=== PATIENT | female | born 1990 | race Two or more races ===

== ENCOUNTER 2024-12-16 15:23 | Observation (INO) | payer OTHER, MEDICAID, SELFPAY ==
[2024-12-16] VITALS (16 sets, daily range): BP systolic 121–141; BP diastolic 68–84; PULSE 93–142; RESP 18–97; TEMP 36.7; O2SAT 95–98; BMI 37.4
[2024-12-16 16:19] LABS: Creatinine,Random Urine 113 mg/dL (30-125); Protein Total, Random Urine 32 mg/dL (1-14)
[2024-12-16 16:26] LABS: Basophils % (Auto) 0 % (0-2.5); Eosinophils % (Auto) 0 % (0-10); Hematocrit 31.9 % (36.0-46.0); Hemoglobin 10.6 g/dL (12.0-16.0); Immature Granulocytes % (Auto) 1 % (0-0); Immature Granulocytes Auto 0.07 Thou/mm3 (0.00-0.00); Lymphocytes # (Auto) 2.1 Thou/mm3 (1.0-4.8); Lymphocytes % (Auto) 17 % (10-50); Mean Corpuscular HGB Conc 33.2 g/dl (31.0-37.0); Mean Corpuscular Hemoglobin 26.8 pg (25.0-35.0); Mean Corpuscular Volume 81 fL (80-100); Monocytes # (Auto) 0.7 Thou/mm3 (0.0-0.8); Monocytes % (Auto) 5 % (0-12); Neutrophils # (Auto) 9.6 Thou/mm3 (1.8-7.7); Neutrophils % (Auto) 77 % (37-80); Nucleated Red Blood Cell % 0 /100 WBC (0); Platelet Count 290 Thou/mm3 (140-440); RDW Standard Deviation 40.4 fL (36.4-46.3); Red Blood Count 3.95 Miln/mm3 (4.00-5.20); White Blood Count 12.4 Thou/mm3 (3.6-11.0)
[2024-12-16 16:55] LABS: Alanine Aminotransferase < 7 U/L (10-49); Albumin, Serum 3.9 gm/dL (3.5-5.0); Albumin/Globulin Ratio 1.5 (1.2-2.2); Alkaline Phosphatase 252 U/L (46-116); Anion Gap 9 (7-16); Aspartate Amino Transferase 12 U/L (0-34); BUN/Creatinine Ratio 11 Ratio (12-20); Bilirubin,Total 0.2 mg/dL (0.3-1.2); Blood Urea Nitrogen 8 mg/dL (9-23); Calcium 9.2 mg/dL (8.3-10.6); Calcium (Corrected) 9.3 mg/dL (8.5-10.1); Chloride 110 mMol/L (98-107); Creatinine (Component) 0.7 mg/dL (0.6-1.3); Estimated Creatinine Clearance 125.9 mL/min (>60); Globulin 2.6 gm/dL (2.3-3.5); Glucose 92 mg/dL (74-106); LDH (Lactate Dehydrogenase) 190 U/L (120-246); Osmolality,Calculated 277 (275-295); Potassium 4.2 mMol/L (3.4-5.1); Sodium 140 mMol/L (136-145); Total Protein 6.5 gm/dL (5.7-8.2); Uric Acid 4.7 mg/dL (3.1-7.8); eGFR > 60 See Note
[2024-12-16 18:09] LABS: Fibrinogen 547 mg/dL (175-375); INR 0.9 (0.9-1.3); Partial Thromboplastin Time 24.2 Seconds (22.0-36.0); Prothrombin Time 10.4 Seconds (9.0-12.2)
== END 2024-12-16 18:05 | disposition home or self-care (01) ==
LOC: S4S1 16:13 → S4SX 16:14
PROVIDERS: Admitting Provider Obstetrics & Gynecology; Referring Provider Obstetrics & Gynecology; Visit Provider Obstetrics & Gynecology
DX: O26.893 Other specified pregnancy related conditions, third trimester (principal); R03.0 Elevated blood-pressure reading, without diagnosis of hypertension; Z3A.38 38 weeks gestation of pregnancy
CPT/HCPCS: 36415; 59025; 59899; 80053; 82570; 83615; 84156; 84550; 85025; 85384; 85610; 85730; G0378

== ENCOUNTER 2024-12-21 05:29 | Inpatient (IN) | payer OTHER, MEDICAID, SELFPAY ==
--- NOTE | 2024-12-20 09:35 | PD.LDHP ---
Documentation for date of: 12/21/24 OB Labor/Induct. HPI History of Present Illness : 1 Term pregnancies: 0 pregnancies: 0 Living children: 0 History of Abortions: Spontaneous and Elective: 0 History of sections: No History of : No Comments: ?34 Y/O @39w0D , here for repeat Low transverse C section . Patient has had 3 visits and very non compliant for her visits and blood works . Pt is a gestational diabetes not on medication ( labs done in third trimestaer and no showed to discuss the result. Last week was seen in the office for a visit , had a elevated BP ,was sent for evauation and possible delivery to triage for GHTN . Prev Csection for GHTN, was on aspirin.Patient was discharged after evaluation by environmental professional provider. .She returns back today for scheduled Csection History of Present Dating criteria: LMP confirmed by 2nd trimester US Labs Narrative: preclampsia labs Past Medical History Surgical History SURGICAL: Negative Section Meds Home Medications and Allergies Home Medications ?Medication ?Instructions ?Recorded ?Confirmed ?Type prenat.vits,jonathan,[id number] 1 tab PO QDAY 09/10/22 11/07/22 History Allergies Allergy/AdvReac Type Severity Reaction Status Date / Time No Known Allergies Allergy Verified 12/21/24 07:11 OB Exam Constitutional Constitutional: no acute distress Routine HEENT Exam Head: Present normocephalic and atraumatic Eye: Present EOMI and PERRL ENT: Present mucous membranes moist Routine Neck Exam Neck: Present supple and trachea midline Routine Cardiovascular Exam Cardiovascular: Present RRR Routine Abdominal Exam Abdominal: Present soft and normoactive bowel sounds Detailed Labor and Delivery Exam Dilation (cm): closed Routine Extremities Exam Extremities: Present full ROM Routine Skin Exam Skin: Present intact, dry and warm Routine Neurological Exam Neurological: Present alert, oriented X3 and CN II-XII intact Routine Psychiatric Exam Psychiatric: Present normal affect and normal thought process OB Results Labs 12/21/24 06:06 12/21/24 06:06 Impressions Impression: 34 y/o @39w, admitted for RLTCS GHTN Last week evaluated in the triage and discharged home on aspirin h/o GHTN in her last Preeclampsia labs wnl [id number] not doing any BS Insufficient care anatomy placenta anterior
[2024-12-21] VITALS (13 sets, daily range): BP systolic 100–133; BP diastolic 63–84; PULSE 85–120; RESP 11–20; TEMP 36.5–36.7; O2SAT 96–98; BMI 37.1
[2024-12-21] MEDS: RINGERS LACTATED 1000 ML 1,000 ML 100 ML IV (06:20)
[2024-12-21 06:24] LABS: Collection Type, Urine Clean Catch
[2024-12-21 06:26] LABS: Basophils % (Auto) 0 % (0-2.5); Eosinophils # (Auto) 0.1 Thou/mm3 (0.0-0.5); Eosinophils % (Auto) 1 % (0-10); Hemoglobin 11.1 g/dL (12.0-16.0); Immature Granulocytes % (Auto) 1 % (0-0); Immature Granulocytes Auto 0.09 Thou/mm3 (0.00-0.00); Lymphocytes % (Auto) 21 % (10-50); Mean Corpuscular HGB Conc 33.6 g/dl (31.0-37.0); Mean Corpuscular Hemoglobin 27.3 pg (25.0-35.0); Mean Corpuscular Volume 81 fL (80-100); Monocytes # (Auto) 0.8 Thou/mm3 (0.0-0.8); Monocytes % (Auto) 5 % (0-12); Neutrophils # (Auto) 10.7 Thou/mm3 (1.8-7.7); Neutrophils % (Auto) 73 % (37-80); Nucleated Red Blood Cell % 0 /100 WBC (0); Platelet Count 316 Thou/mm3 (140-440); RDW Standard Deviation 39.9 fL (36.4-46.3); Red Blood Count 4.07 Miln/mm3 (4.00-5.20); White Blood Count 14.7 Thou/mm3 (3.6-11.0)
[2024-12-21 06:59] LABS: Bacteria,Urine 4+; Bilirubin,Urine Negative (Negative); Blood,Urine 1+ (Negative); Clarity,Urine Turbid (Clear/Hazy); Color,Urine Yellow (Lt Yel-Yel); Glucose, Urine Negative (Negative); Ketones,Urine 1+ (Negative); Leukocyte Esterase,Urine Positive (Negative); Nitrite,Urine Negative (Negative); Protein,Urine 1+ (Neg - Trace); RBC,Urine 8 /hpf (0-3); Squamous Epithelial Cell,Urine 11 /hpf (0-5); Urobilinogen,Urine Negative mg/dL (0.0-1.0); WBC,Urine 19 /hpf (0-5)
[2024-12-21] MEDS: CITRIC ACID/SODIUM CITR 15 ML UDC (BICITRA) 30 ML PO (07:14)
[2024-12-21] MEDS: ceFAZolin/D5W 2 GM IV 2 GM/100 ML BAG IV (07:15)
[2024-12-21] MEDS: FAMOTIDINE INJ 10 MG/ML VIAL 2 ML 20 MG IVP (07:21)
[2024-12-21 07:37] LABS: Alanine Aminotransferase 9 U/L (10-49); Albumin/Globulin Ratio 1.4 (1.2-2.2); Alkaline Phosphatase 269 U/L (46-116); Anion Gap 10 (7-16); Aspartate Amino Transferase 12 U/L (0-34); BUN/Creatinine Ratio 13 Ratio (12-20); Bilirubin,Total 0.3 mg/dL (0.3-1.2); Blood Urea Nitrogen 9 mg/dL (9-23); Calcium 9.2 mg/dL (8.3-10.6); Calcium (Corrected) 9.2 mg/dL (8.5-10.1); Carbon Dioxide 20.8 mMol/L (20.0-31.0); Chloride 108 mMol/L (98-107); Creatinine (Component) 0.7 mg/dL (0.6-1.3); Estimated Creatinine Clearance 125.4 mL/min (>60); Globulin 2.8 gm/dL (2.3-3.5); Glucose 89 mg/dL (74-106); Osmolality,Calculated 275 (275-295); Potassium 3.8 mMol/L (3.4-5.1); Sodium 139 mMol/L (136-145); Total Protein 6.8 gm/dL (5.7-8.2); Uric Acid 4.9 mg/dL (3.1-7.8); eGFR > 60 See Note
[2024-12-21 07:44] LABS: Syphilis Nonreactive (Nonreactive)
[2024-12-21 08:39] LABS: HIV (1&2) Antibody Rapid Non-Reactive
[2024-12-21] MEDS: KETOROLAC INJ 30 MG/ML VIAL IVP ×3 (09:49→22:07)
[2024-12-21] MEDS: OXYTOCIN in NS 20 units 20 UNIT/1,000 ML BAG 125 UNIT IV ×2 (09:56→18:11)
--- NOTE | 2024-12-21 12:02 | ESOP_ITS ---
Operative Note - ROLLER SETTER Procedure Date of procedure: 12/21/24 Procedure Performed: Repeat low-transverse Indication: Previous Gestational hypertension [id number] Pre-Op diagnosis: Same Post-Op diagnosis: Same Procedure description: Informed consent was obtained and the patient was taken to the operating room.? Identity was confirmed by double identifiers and she was placed on the operating table.The abdomen and perineum were prepped in the usual sterile fashion and a Good catheter was placed to continuous drainage.? Sterile drapes were applied.??A Pfannenstiel skin incision was made with a scalpel and carried to the subcutaneous fat up to the rectus fascia.? The rectus fascia was incised on either side of the midline and the incisions were extended bilaterally.? The fascia was gently dissected off the ventral surface of the rectus muscle both superiorly and inferiorly. extensive adhesiolysis was done between musle , peritoneum. Carefully a peritioneal window created hysterotomy incision made and extended bluntly with finger. Rupture of membranes revealed clear fluid. The baby was found vertex presentation and was delivered via vertex. Nuchal cord x 2, seen the umbilical cord , was doubly clamped, divided and the was handed over to the waiting team. The placenta delivered by controlled cord traction . The interior of the uterus was now thorougly cleaned of all blood and debris and membranes.?The? hysterotomy was closed using 0 vicryl sutur e in double layers. Once the repair was completed the hysterotomy was inspected, was noted to be adequately hemostatic. Then the rectus fascia was repaired using Vicryl 0 in a running fashion.? The subcutaneous layer was now, approximated with 3-0 vicryl in double layers.? All bleeding points were cauterized using the Bovie.?The skin was closed using 4-0 Monocryl in a subcuticular fashion.? The skin was cleaned and a sterile dressing was applied. The patient was now undraped, the abdomen and back were thoroughly cleaned and she was now transferred to the recovery room in a stable Estimated blood loss (ml): 300 Surgical staff Operation Date: 12/21/24 07:45 Case Staff Assisting Surgeon: Tahir Siddiqui DRAWING KILN SUPERVISOR: Cirilo Meraz DRAWING KILN SUPERVISOR: Matthew Murcia RNmonitoring analyst: Adrianne Kidd Diagnosis Problem List Completed Was Problem List Reviewed/Reconciled?: Yes
--- NOTE | 2024-12-21 12:05 | OBDSUM_ITS ---
Data ([place]) Data Hx Section: Yes Reason for Primary Section: GHTN Para: 1 Delivery Data ([place]) Labor Data ROM Date: 12/21/24 ROM Time: 08:07 Rupture Type: AROM Amniotic Fluid: Clear Delivery Data Delivery Date: 12/21/24 Delivery Time: 08:08 Gestational age (weeks): 39 Placenta Delivery Date: 12/21/24 Placenta Delivery Time: 08:09 Delivered by: Tahir Siddiqui Delivery nurse: Ambika Pérez Other staff at delivery: Nursery Nurse Other staff at delivery: Nursery Nurse Other staff at delivery: Custom Feed Mill Operator Other staff at delivery: Scrub Other staff at delivery: Chelsea Galdamez Other staff at delivery: Yadira Dill Other staff at delivery: Adrianne Kidd Other staff at delivery: Nereida Kohler Delivery Method Delivery: Delivery Type: Repeat Presentation: Vertex Anesthesia Type Primary Anesthesia: Spinal Placenta Cord Sample: Cord Blood Obtained EBL Estimated blood loss (ml): 300 Umbilical Cord Umbilical Vessels: 3 Nuchal Cord: None Body Cord: None [place] Data ([place]) Data Infant Gender: Male Infant Weight Grams: 3110 1 Minute Total: 8 5 Minute Total: 9
[2024-12-21 14:11] LABS: Basophils % (Auto) 0 % (0-2.5); Eosinophils % (Auto) 0 % (0-10); Hemoglobin 10.2 g/dL (12.0-16.0); Immature Granulocytes % (Auto) 1 % (0-0); Immature Granulocytes Auto 0.07 Thou/mm3 (0.00-0.00); Lymphocytes # (Auto) 2.4 Thou/mm3 (1.0-4.8); Lymphocytes % (Auto) 17 % (10-50); Mean Corpuscular Hemoglobin 27.6 pg (25.0-35.0); Mean Corpuscular Volume 81 fL (80-100); Monocytes # (Auto) 0.7 Thou/mm3 (0.0-0.8); Monocytes % (Auto) 5 % (0-12); Neutrophils # (Auto) 11.3 Thou/mm3 (1.8-7.7); Neutrophils % (Auto) 78 % (37-80); Nucleated Red Blood Cell % 0 /100 WBC (0); Platelet Count 251 Thou/mm3 (140-440); RDW Standard Deviation 40.6 fL (36.4-46.3); White Blood Count 14.5 Thou/mm3 (3.6-11.0)
[2024-12-21 14:39] LABS: Fibrinogen 448 mg/dL (175-375); Partial Thromboplastin Time 24.9 Seconds (22.0-36.0); Prothrombin Time 10.5 Seconds (9.0-12.2)
[2024-12-22] MEDS: ACETAMINOPHEN 325 MG TABLET 650 MG PO ×2 (02:25→07:54)
--- NOTE | 2024-12-22 02:42 | PC.NURSE ---
2101 Received telephone order from Dr Siddiqui to remove indwelling catheter.
[2024-12-22 03:57] VITALS: BP 115/76; PULSE 88; RESP 18; TEMP 36.4; O2SAT 95
--- NOTE | 2024-12-22 07:17 | PD.LDPPPRG ---
Subjective Subjective Interval history: Delivery type: , gestational hypertension, patient has been normotensive since delivery Patient doing well this morning. No acute complaints. Ambulating, tolerating p.o. and voiding without difficulty. HTN/Pre-Eclampsia screen: No chest pain, shortness of breath, headache, visual changes, epigastric or right upper quadrant pain. Breast-feeding, lochia diminishing. Bowel: Flatus+/ BM+ UOP: Exam Vital Signs Temp Pulse Resp BP Pulse Ox O2 Del Method 97.5 F 88 18 115/76 95 Room Air 12/22/24 03:57 12/22/24 03:57 12/22/24 03:57 12/22/24 03:57 12/22/24 03:57 12/22/24 03:57 Constitutional Constitutional: no acute distress Routine HEENT Exam Head: Present normocephalic and atraumatic Eye: Present EOMI and PERRL ENT: Present mucous membranes moist Routine Neck Exam Neck: Present supple and trachea midline Routine Respiratory Exam Respiratory: Present chest non-tender, lungs clear, normal breath sounds and no resp distress Routine Cardiovascular Exam Cardiovascular: Present RRR Routine Abdominal Exam Abdominal: Present soft and normoactive bowel sounds Routine Extremities Exam Extremities: Present full ROM Routine Skin Exam Skin: Present intact, dry and warm Routine Neurological Exam Neurological: Present alert, oriented X3 and CN II-XII intact Routine Psychiatric Exam Psychiatric: Present normal affect and normal thought process Objective Labs 12/21/24 13:25 12/21/24 06:06 Labs: Laboratory Results - last 24 hr 12/21/24 12/21/24 12/21/24 06:05 06:06 13:25 WBC 14.5 H RBC 3.70 L Hgb 10.2 L Hct 30.0 L MCV 81 MCH 27.6 MCHC 34.0 RDW Std Deviation 40.6 Plt Count 251 D Neut % (Auto) 78 Lymph % (Auto) 17 [place] % (Auto) 5 Eos % (Auto) 0 Baso % (Auto) 0 Neut # (Auto) 11.3 H Lymph # (Auto) 2.4 [place] # (Auto) 0.7 Eos # (Auto) 0.0 Baso # (Auto) 0.0 Immature Gran # (Auto) 0.07 H Absolute Nucleated RBC 0.00 Immature Gran % 1 H Nucleated RBC % 0 PT 10.5 INR 1.0 APTT 24.9 Fibrinogen 448 H Sodium 139 Potassium 3.8 Chloride 108 H Carbon Dioxide 20.8 Anion Gap 10 BUN 9 Creatinine 0.7 Estim Creat Clear Calc 125.4 eGFR > 60 BUN/Creatinine Ratio 13 Glucose 89 Calculated Osmolality 275 Uric Acid 4.9 Calcium 9.2 Corrected Calcium 9.2 Total Bilirubin 0.3 AST 12 ALT 9 L Alkaline Phosphatase 269 H Total Protein 6.8 Albumin 4.0 Globulin 2.8 Albumin/Globulin Ratio 1.4 Syphilis Serology Nonreactive HIV 1&2 Antibody Rapid Non-Reactive Blood Type O Positive Antibody Screen NEGATIVE Assessment & Plan Problem List (1) Gestational hypertension without significant proteinuria during in third trimester, antepartum: Status: Acute (2) delivery delivered: Status: Acute Assessment and plan: 1. Continue routine /post-op care 2. Labs reviewed, cbc appropriate 3. Remove dressing/Good 4. Encourage to ambulate, shower 5. Encourage PO intake, breast feeding Time Spent With Patient Time: Total time spent is greater than 50% in coordination of care (as documented) at patient's floor/unit and/or counseling patient:
[2024-12-22 08:00] VITALS: BP 125/84; PULSE 105; RESP 17; TEMP 36.6; O2SAT 97
[2024-12-22 11:57] VITALS: BP 123/81; PULSE 96; RESP 18; TEMP 36.6; O2SAT 97
[2024-12-22] MEDS: IBUPROFEN TAB 400 MG TABLET 800 MG PO ×2 (15:15→23:15)
--- NOTE | 2024-12-22 15:22 | PC.SS ---
MANUFACTURING EXECUTIVE conducted bedside contact with the patient to address nursing referral indicating patient LTC.? MANUFACTURING EXECUTIVE introduced self and role.? At bedside with patient was FOB, Christian Lee.? Patient gave permission for FOB to be present during discussion.? Patient confirmed late to care.? Patient explained late to care due to inability to establishing OB services with [facility].? Patient initially referred to [facility] but due to barrier assigned to [facility].? Patient stated that conflict with pending appointments added barrier.? Patient established services with Dr. Siddiqui, [facility].? , Patrick; is the patient?s second child.? Daughter is 2 years old.?? Patient resides at home with FOB and child.? Patient is not aligned with WIC, SNAP or TANF. Patient denies history of alcohol/drug use.? Patient denies episodes of domestic violence.? Patient denies history of mental health.? Infant delivered via .? Patient plans on bottle feeding the infant. Patient has access to appropriate supplies and equipment.? FOB will provide transportation upon discharge.? Patient describes possessing support system consisting of spouse and extended family.? MANUFACTURING EXECUTIVE provided community resources to include [employer] and [employer].? No further intervention required at this time, social worker palliative care will be available to address any further concerns.? MANUFACTURING EXECUTIVE updated bedside nurse.?
[2024-12-22] MEDS: Milk Of Magnesia Susp 30 ML UDC PO (15:41)
[2024-12-22 20:30] VITALS: BP 148/89; PULSE 105; RESP 18; TEMP 36.7; O2SAT 97
[2024-12-23] VITALS (7 sets, daily range): BP systolic 131–156; BP diastolic 79–97; PULSE 98–103; RESP 17–18; TEMP 36.5–36.9; O2SAT 97–98
[2024-12-23] MEDS: IBUPROFEN TAB 400 MG TABLET 800 MG PO (08:08)
--- NOTE | 2024-12-23 10:54 | PD.LDDS ---
DS: Providers Provider Date of admission: 12/21/24 05:29 Primary care physician: Wicho Stark MD Admitting Provider: Tahir Siddiqui MD Attending Provider on Admission: Guido Esquivel MD Consults: 12/21/24 05:32 Referral Nutritional Services Routine Comment: 12/21/24 07:37 Referral Routine Comment: Attending Provider on DC: Tahir Siddiqui MD Discharging Provider: Tahir Siddiqui MD DS: Diagnosis Problem List Completed Was Problem List Reviewed/Reconciled?: Yes Summary/Hosp Course Peripartum Data Delivery Method: Low Transverse Procedures: Procedures Operation Date: 12/21/24 07:45 Actual Procedure Side Surgeon p in OB Tahir Siddiqui MD Status at Discharge Cognitive/behavioral status at discharge: 34-year-old s/p repeat low-transverse for gestational hypertension has been here for 2 days. Blood pressures has been stable however has few readings in 140s systolic patient will be started on antihypertensive Procardia 30 XL once daily. Patient to follow-up in 3 days for blood pressure check in the clinic. Patient has met all other milestones Time Spent with Patient Time attestation: Total time spent providing and/or coordinating discharge services: Exam Vital Signs Temp Pulse Resp BP Pulse Ox O2 Del Method 98.1 F 98 17 147/88 H 97 Room Air 12/23/24 08:00 12/23/24 08:00 12/23/24 08:00 12/23/24 08:00 12/23/24 08:00 12/23/24 08:00 Constitutional Constitutional: no acute distress Routine HEENT Exam Head: Present normocephalic and atraumatic Eye: Present EOMI and PERRL ENT: Present mucous membranes moist Routine Neck Exam Neck: Present supple and trachea midline Routine Respiratory Exam Respiratory: Present chest non-tender, lungs clear, normal breath sounds and no resp distress Routine Cardiovascular Exam Cardiovascular: Present RRR Routine Abdominal Exam Abdominal: Present soft and normoactive bowel sounds Routine Extremities Exam Extremities: Present full ROM Routine Skin Exam Skin: Present intact, dry and warm Routine Neurological Exam Neurological: Present alert, oriented X3 and CN II-XII intact Routine Psychiatric Exam Psychiatric: Present normal affect and normal thought process Discharge Plan Plan Patient Disposition: HOME (Self Care) Prescriptions/Referrals Prescriptions/Med Rec: New acetaminophen-codeine 300-15 mg tablet 1 tab PO Q12H PRN (Reason: pain) Qty: 14 0RF ibuprofen 800 mg tablet 800 mg PO Q8H PRN (Reason: pain) Qty: 14 0RF nifedipine [Procardia XL] 30 mg tablet extended release 24hr 30 mg PO QDAY Qty: 14 0RF No Action Vitamin Tablet 1 tab PO QDAY acetaminophen 500 mg capsule 500 mg PO Q6H PRN (Reason: fever or pain) Qty: 14 0RF acetaminophen-codeine 300-15 mg tablet 1 tab PO BID PRN (Reason: pain) Qty: 14 0RF ibuprofen 800 mg tablet 800 mg PO Q8H PRN (Reason: pain) Qty: 30 0RF amoxicillin-pot clavulanate [Augmentin] 500-125 mg tablet 1 tab PO Q12H Qty: 14 0RF Referrals: Wicho Stark MD [Primary Care Provider] - Patient/Caregiver Discharge Instructions Education Materials: C Section Dc Print Language: Armenian Stand Alone Forms: Deborah Award Info., Patient Portal Info Letter Discharge Order Discharge Orders: Discharge (Routine); Ordered 12/23/24 Ordered By: Tahir Siddiqui Planned Discharge Date 12/23/24
[2024-12-23] MEDS: NIFEdipine XL 30 MG TABCR PO (11:15)
[2024-12-23] MEDS: Furosemide 20 MG TABLET PO (13:20)
--- NOTE | 2024-12-23 14:51 | PC.NURSE ---
[address] Siddiqui to update her on patient's most recent bp 139/79. Dr Siddiqui instructed RN to retake Pt's BP in 1 hour and discharge her if Systolic BP is below 150s.
== END 2024-12-23 16:15 | disposition home or self-care (01) | DRG 788 ==
LOC: S4SX 07:02 → S4NX 08:18
PROVIDERS: Admitting Provider Student in an Organized Health Care Education/Training Program; PCP Family Medicine; Visit Provider Obstetrics & Gynecology
PROC: 10D00Z1 Extraction of Products of Conception, Low, Open Approach (ICD-10-PCS; CPT 59514; principal; 2024-12-21 07:30)
DX: O34.211 Maternal care for low transverse scar from previous cesarean delivery (principal); Z37.0 Single live birth; Z3A.39 39 weeks gestation of pregnancy; O24.420 Gestational diabetes mellitus in childbirth, diet controlled; O13.4 Gestational [pregnancy-induced] hypertension without significant proteinuria, complicating childbirth; Z91.199 Patient's noncompliance with other medical treatment and regimen due to unspecified reason
CPT/HCPCS: 36415; 80053; 81001; 84550; 85025; 85384; 85610; 85730; 86703; 86780; 86850; 86900; 86901; 87491; 87591; 87661; 94762; J0689; J1885; J2250; J2274; J2371; J2405; J2590; J3490; J7120; S0191; A9270; J2270